=== PATIENT | male | born 1945 | race Caucasian/White ===

== ENCOUNTER 2017-12-17 14:55 | Observation (INO) | payer MEDICARE, OTHER ==
[~2017-12-17 14:55] MED LIST: ALBU8I INH; ASPI81TA82 PO; ATOR40TA PO; CLON1TAB PO; COQ150CA PO; KLOR20TA3 PO; METO25 PO; PROZ20CA11 PO; SAW160TA PO; SLOWTAB PO; TORS20TA PO; TRAZ50TA12 PO; UMEC1AER INH; VITA100017 PO; VITA400C70 PO; Z.0.OXYGENDME TC; [UNRECOGNIZED DRUG - CODE] PO
[2017-12-17] MEDS ORDERED: IOHEXOL 350 MG/ML 10 ML VIAL (for RAD DIAG) IVCONTRAST ONE ×2 (14:56)
[2017-12-17 15:10] VITALS: BP 120/65; PULSE 73; RESP 20; TEMP 98.2; O2SAT 90
--- NOTE | 2017-12-17 16:23 | RADRPT ---
EXAM DATE/TIME: 12/17/2017 15:56 [facility] COMPARISON: CHEST SINGLE AP, November 19, 2014, 15:33. INDICATIONS : Short of breath. MEDICAL HISTORY : None. SURGICAL HISTORY : None. ENCOUNTER: Initial ACUITY: 1 day PAIN SCORE: 0/10 LOCATION: Bilateral chest FINDINGS: Frontal and lateral views of the chest demonstrate a normal-sized cardiac silhouette with calcificati on of the aorta. Left chest wall cardiac pacing device is present with the tips overlying the heart. Some of the wires are fractured, likely representing abandoned wires. This is a stable finding. Lungs are hyperexpanded with mild lucency in the upper lung zones. No pleural effusion, airspace consolida tion, or pneumothorax is identified. The bones and soft tissues demonstrate no acute finding. CONCLUSION: 1. No acute cardiopulmonary abnormality is identified. 2. Background lung changes are suggestive of obstructive airways disease/emphysema. Matthias Peraza MD on December 17, 2017 at 16:19 Board Certified Radiologist. This report was verified electronically.
[2017-12-17 18:06] VITALS: BP 197/91; PULSE 64; RESP 16; O2SAT 99
[2017-12-17 18:06] LABS: AUTOMATED NEUTROPHIL # 6.3 TH/MM3 (1.8-7.7); BASOPHIL # 0.1 TH/MM3 (0-0.2); BASOPHIL % 0.8 % (0.0-2.0); HEMATOCRIT 52.7 % (39.0-51.0); HEMOGLOBIN 16.7 GM/DL (13.0-17.0); LYMPH % 9.8 % (9.0-44.0); LYMPHOCYTE # 0.7 TH/MM3 (1.0-4.8); MEAN CELL VOLUME 93.8 FL (80.0-100.0); MEAN CORPUSCULAR HEMOGLOBIN 29.7 PG (27.0-34.0); MEAN CORPUSCULAR HGB CONC 31.7 % (32.0-36.0); MEAN PLATELET VOLUME 8.5 FL (7.0-11.0); MONO % 4.6 % (0.0-8.0); MONOCYTE # 0.3 TH/MM3 (0-0.9); NEUT % 84.8 % (16.0-70.0); PLATELET COUNT 122 TH/MM3 (150-450); RED BLOOD COUNT 5.61 MIL/MM3 (4.50-5.90); RED CELL DISTRIBUTION WIDTH 13.9 % (11.6-17.2); WHITE BLOOD COUNT 7.4 TH/MM3 (4.0-11.0)
--- NOTE | 2017-12-17 18:09 | PD ---
HPI Chief Complaint: Respiratory Symptoms Time Seen by Provider: 17:59 Travel History International Travel<30 days: No Contact w/Intl Traveler<30days: No History of Present Illness HPI Patient comes in complaining of progressive shortness of breath that has not improved. He normally only uses 2 L of nasal cannula oxygen at nighttime. However over the past week or so it has been worsening. Patient was admitted at [facility] where he was admitted. About 4 days or so placed on breathing treatments and IV steroids which caused his blood sugar to go up and required insulin although he has never had a history of blood sugar problems. The patient was very upset and about the care that he received at [facility] facility. Patient was discharged on oral steroids and oral antibiotics. However the patient is concerned that no x-ray no CAT scan was ever done at the other facility and was concerned that he had other possibilities could be causing his shortness of breath. PCP is CECIL and Dr. Alfaro Pulmonary is Dr. MALIK [employer] Manufacturing Supervisor is Dr. BATSHEVA ROSE Past Medical History Arthritis: Yes Asthma: No Autoimmune Disease: No Blood Disorders: No Depression: Yes Heart Rhythm Problems: Yes Cancer: No Cardiovascular Problems: Yes High Cholesterol: Yes Chemotherapy: No Chest Pain: No Congestive Heart Failure: No COPD: Yes Diabetes: No Diminished Hearing: No Endocrine: No Gastrointestinal Disorders: No Glaucoma: No Genitourinary: No Hepatitis: No Hiatal Hernia: No Hypertension: Yes Immune Disorder: No Musculoskeletal: No Neurologic: No Psychiatric: No Reproductive: No Respiratory: Yes Integumentary: No Myocardial Infarction: No Radiation Therapy: No Sickle Cell Disease: No Sleep Apnea: No Thyroid Disease: No Past Surgical History Abdominal Surgery: No AICD: Yes Appendectomy: Yes Arteriovenous Shunt: No Body Medical Devices: ICD Cardiac Surgery: Yes (PACEMAKER AND INTERNAL DEFIBRILATOR) Ear Surgery: No Endocrine Surgery: No Eye Surgery: No Genitourinary Surgery: No Gynecologic Surgery: No Insulin Pump: No Joint Replacement: No Oral Surgery: No Pacemaker: Yes Thoracic Surgery: Yes Other Surgery: Yes Social History Alcohol Use: No Tobacco Use: No Substance Use: No Allergies-Medications (Allergen,Severity, Reaction): Coded Allergies: No Known Allergies (Verified Allergy, Unknown, 12/17/17) Reported Meds & Prescriptions Reported Meds & Active Scripts Active Reported Vitamin E (Vitamin E Acetate) 400 Unit Capsule 1 Tab PO DAILY Eplerenone 25 Mg Tab 25 Mg PO DAILY Prednisone 10 Mg Tab 10 Mg PO DIRECTED Doxycycline Hyclate 100 Mg Cap 100 Mg PO DAILY Metoprolol Tartrate 25 Mg Tab 25 Mg PO BID Aspirin 81 Mg Chew 81 Mg CHEW DAILY Atorvastatin (Atorvastatin Calcium) 40 Mg Tab 40 Mg PO HS Clonazepam 0.5 Mg Tab 0.5 Mg PO BID Fluoxetine (Fluoxetine HCl) 60 Mg Tab 60 Mg PO DAILY Anoro Ellipta Inh (Umeclidinium/Vilanterol) 62.5-25 Mcg/Act Aero 1 Puff INH DAILY Trazodone (Trazodone HCl) 50 Mg Tab 150 Mg PO HS Physical Exam Narrative GENERAL: SKIN: Warm and dry. HEAD: Atraumatic. Normocephalic. EYES: Pupils equal and round. No scleral icterus. No injection or drainage. ENT: No nasal bleeding or discharge. Mucous membranes pink and moist. NECK: Trachea midline. No JVD. CARDIOVASCULAR: Regular rate and rhythm. RESPIRATORY: No accessory muscle use. Clear to auscultation. Breath sounds equal bilaterally. GASTROINTESTINAL: Abdomen soft, non-tender, nondistended. MUSCULOSKELETAL: Extremities without clubbing, cyanosis, or edema. No obvious deformities. NEUROLOGICAL: Awake and alert. No obvious cranial nerve deficits. Motor grossly within normal limits. Five out of 5 muscle strength in the arms and legs. Normal speech. PSYCHIATRIC: Appropriate mood and affect; insight and judgment normal. Data Data Last Documented VS Vital Signs Date Time Temp Pulse Resp B/P (MAP) Pulse Ox O2 Delivery O2 Flow Rate FiO2 12/17/17 19:22 66 18 169/79 (109) 100 Nasal Cannula 4.00 12/17/17 15:10 98.2 Orders Orders Complete Blood Count With Diff (12/17/17 15:15) Comprehensive Metabolic Panel (12/17/17 15:15) B-Type Natriuretic Peptide (12/17/17 15:15) Act Partial Throm Time (Ptt) (12/17/17 15:15) Prothrombin Time / Inr (Pt) (12/17/17 15:15) Magnesium (Mg) (12/17/17 15:15) Chest, Pa & Lat (12/17/17 15:15) Ckmb (Isoenzyme) Profile (12/17/17 18:00) Troponin I (12/17/17 18:00) Ct Pulmonary Angiogram (12/17/17 18:19) Iohexol 350 Inj (Omnipaque 350 Inj) (12/17/17 14:56) Methylprednisolone So Succ Inj (Solumedr (12/17/17 20:45) Albuterol-Ipratropium Neb (Duoneb Neb) (12/17/17 20:45) Admit Order (Ed Use Only) (12/17/17 20:45) Labs Laboratory Tests Test 12/17/17 16:40 White Blood Count 7.4 TH/MM3 Red Blood Count 5.61 MIL/MM3 Hemoglobin 16.7 GM/DL Hematocrit 52.7 % Mean Corpuscular Volume 93.8 FL Mean Corpuscular Hemoglobin 29.7 PG Mean Corpuscular Hemoglobin Concent 31.7 % Red Cell Distribution Width 13.9 % Platelet Count 122 TH/MM3 Mean Platelet Volume 8.5 FL Neutrophils (%) (Auto) 84.8 % Lymphocytes (%) (Auto) 9.8 % Monocytes (%) (Auto) 4.6 % Eosinophils (%) (Auto) 0.0 % Basophils (%) (Auto) 0.8 % Neutrophils # (Auto) 6.3 TH/MM3 Lymphocytes # (Auto) 0.7 TH/MM3 Monocytes # (Auto) 0.3 TH/MM3 Eosinophils # (Auto) 0.0 TH/MM3 Basophils # (Auto) 0.1 TH/MM3 CBC Comment DIFF FINAL Differential Comment Prothrombin Time 11.2 SEC Prothromb Time International Ratio 1.1 RATIO Activated Partial Thromboplast Time 24.4 SEC Blood Urea Nitrogen 28 MG/DL Creatinine 1.11 MG/DL Random Glucose 174 MG/DL Total Protein 7.0 GM/DL Albumin 3.3 GM/DL Calcium Level 8.3 MG/DL Magnesium Level 2.3 MG/DL Alkaline Phosphatase 64 U/L Aspartate Amino Transf (AST/SGOT) 48 U/L Alanine Aminotransferase (ALT/SGPT) 81 U/L Total Bilirubin 2.1 MG/DL Sodium Level 140 MEQ/L Potassium Level 5.6 MEQ/L Chloride Level 99 MEQ/L Carbon Dioxide Level 37.6 MEQ/L Anion Gap 3 MEQ/L Estimat Glomerular Filtration Rate 65 ML/MIN Total Creatine Kinase 58 U/L Troponin I LESS THAN 0.02 NG/ML B-Type Natriuretic Peptide 94 PG/ML MDM Medical Decision Making Medical Screen Exam Complete: Yes Emergency Medical Condition: Yes Medical Record Reviewed: Yes Differential Diagnosis COPD versus CHF versus pericardial effusion versus pulmonary edema versus pulmonary embolus versus STEMI versus atypical non-STEMI Narrative Course CBC shows no left shift, no leukocytosis, no anemia, slightly low platelet count of 122,000 Coagulation profile is within normal limits Patient has several minor abnormalities including potassium of 5.6, bicarb of 38 no anion gap BUN of 28 creatinine 1.1 with a GFR of 65 random glucose of 174 total bili of 2.1 AST of 48 ALT of 81 beta natruretic peptide of 94 albumin 3.3 Chest x-ray read by radiologist as no acute cardia pulmonary abnormality identified, background lung changes are suggestive of emphysema. Patient is signed out to incoming physician pending a CT chest to rule out pericardial effusion versus pulmonary embolus as cause of dyspnea Diagnosis Primary Impression: Dyspnea Admitting Information Admitting Physician Requests: Observation Akil He MD Dec 17, 2017 18:09
[2017-12-17] MEDS ORDERED: VITA-142 PO (18:16)
[2017-12-17] MEDS ORDERED: METO25TA3 PO (18:16)
[2017-12-17] MEDS ORDERED: EPLE25TA PO (18:16)
[2017-12-17] MEDS ORDERED: PRED10 PO (18:16)
[2017-12-17] MEDS ORDERED: DOXY100C PO (18:16)
[2017-12-17] MEDS ORDERED: ATOR40TA16 PO (18:16)
[2017-12-17] MEDS ORDERED: ASPI-516 CHEW (18:16)
[2017-12-17] MEDS ORDERED: FLUO60TA PO (18:16)
[2017-12-17] MEDS ORDERED: CLON0.5T PO (18:16)
[2017-12-17 18:18] LABS: ALBUMIN 3.3 GM/DL (3.4-5.0); AST (GOT) 48 U/L (15-37); BICARBONATE 37.6 MEQ/L (21.0-32.0); BLOOD UREA NITROGEN 28 MG/DL (7-18); CALCIUM 8.3 MG/DL (8.5-10.1); CHLORIDE 99 MEQ/L (98-107); CREATININE 1.11 MG/DL (0.60-1.30); GLOMERULAR FILTRATION RATE 65 ML/MIN (>89); GLUCOSE,RANDOM 174 MG/DL (74-106); MAGNESIUM 2.3 MG/DL (1.5-2.5); SODIUM (NA) 140 MEQ/L (136-145)
[2017-12-17 18:22] LABS: ALKALINE PHOSPHATASE 64 U/L (45-117); ALT (GPT) 81 U/L (12-78); TOTAL BILIRUBIN ADULT 2.1 MG/DL (0.2-1.0)
[2017-12-17 18:27] LABS: INTERNATIONAL NORMALIZED RATIO 1.1 RATIO; PROTHROMBIN TIME - PATIENT 11.2 SEC (9.8-11.6)
[2017-12-17 18:42] LABS: TROPONIN I LESS THAN 0.02 NG/ML (0.02-0.05)
[2017-12-17 19:22] VITALS: BP_SYST 169; BP_SYST 203; BP_DIAS 79; BP_DIAS 82; PULSE 66; RESP 18; O2SAT 100
--- NOTE | 2017-12-17 19:55 | RADRPT ---
EXAM DATE/TIME: 12/17/2017 19:37 [facility] COMPARISON: CT PULMONARY ANGIOGRAM, November 19, 2014, 18:36. INDICATIONS : Shortness of breath for one month, low oxygen saturation, patient complains of cough and fever. Rimma nt has known emphysema. IV CONTRAST: 60 cc Omnipaque 350 (iohexol) IV RADIATION DOSE: 13.52 CTDIvol (mGy) MEDICAL HISTORY : Cardiovascular disease. Hypertension. Chronic obstructive pulmonary disease. SURGICAL HISTORY : Appendectomy. Defibrillator. ENCOUNTER: Initial ACUITY: 1 month PAIN SCALE: 9/10 LOCATION: chest TECHNIQUE: Volumetric scanning of the chest was performed using a pulmonary embolism protocol MIP images were re constructed. Using automated exposure control and adjustment of the mA and/or kV according to patien t size, radiation dose was kept as low as reasonably achievable to obtain optimal diagnostic quality images. DICOM format image data is available electronically for review and comparison. Follow-up recommendations for detected pulmonary nodules are based at a minimum on nodule size and pa tient risk factors according to Fleischner Society Guidelines. FINDINGS: PULMONARY ARTERIES: No filling defects are seen in the pulmonary arteries through the segmental level. LUNGS: There is no consolidation or pneumothorax . The lungs remain hyperinflated with underlying emphysema . No concerning pulmonary nodule is visualized. PLEURAE: There is no pleural thickening or pleural effusion. MEDIASTINUM: There is good visualization of the great vessels of the middle mediastinum. No evidence of mediastin al or hilar adenopathy/mass. Coronary artery calcifications are present and cardiomegaly. MUSCULOSKELETAL: Within normal limits for patient age. MISCELLANEOUS: The visualized upper abdominal organs demonstrate no acute abnormality. There is a left subclavian tr ansvenous pacer in place. CONCLUSION: 1. No evidence of pulmonary emboli. 2. Underlying emphysema. Johnny Meng MD on December 17, 2017 at 19:50 Board Certified Radiologist. This report was verified electronically.
--- NOTE | 2017-12-17 20:26 | PD ---
Data Data Last Documented VS Vital Signs Date Time Temp Pulse Resp B/P (MAP) Pulse Ox O2 Delivery O2 Flow Rate FiO2 12/17/17 19:22 66 18 169/79 (109) 100 Nasal Cannula 4.00 12/17/17 15:10 98.2 Orders Orders Complete Blood Count With Diff (12/17/17 15:15) Comprehensive Metabolic Panel (12/17/17 15:15) B-Type Natriuretic Peptide (12/17/17 15:15) Act Partial Throm Time (Ptt) (12/17/17 15:15) Prothrombin Time / Inr (Pt) (12/17/17 15:15) Magnesium (Mg) (12/17/17 15:15) Chest, Pa & Lat (12/17/17 15:15) Ckmb (Isoenzyme) Profile (12/17/17 18:00) Troponin I (12/17/17 18:00) Ct Pulmonary Angiogram (12/17/17 18:19) Iohexol 350 Inj (Omnipaque 350 Inj) (12/17/17 14:56) Methylprednisolone So Succ Inj (Solumedr (12/17/17 20:45) Albuterol-Ipratropium Neb (Duoneb Neb) (12/17/17 20:45) Admit Order (Ed Use Only) (12/17/17 20:45) Labs Laboratory Tests Test 12/17/17 16:40 White Blood Count 7.4 TH/MM3 Red Blood Count 5.61 MIL/MM3 Hemoglobin 16.7 GM/DL Hematocrit 52.7 % Mean Corpuscular Volume 93.8 FL Mean Corpuscular Hemoglobin 29.7 PG Mean Corpuscular Hemoglobin Concent 31.7 % Red Cell Distribution Width 13.9 % Platelet Count 122 TH/MM3 Mean Platelet Volume 8.5 FL Neutrophils (%) (Auto) 84.8 % Lymphocytes (%) (Auto) 9.8 % Monocytes (%) (Auto) 4.6 % Eosinophils (%) (Auto) 0.0 % Basophils (%) (Auto) 0.8 % Neutrophils # (Auto) 6.3 TH/MM3 Lymphocytes # (Auto) 0.7 TH/MM3 Monocytes # (Auto) 0.3 TH/MM3 Eosinophils # (Auto) 0.0 TH/MM3 Basophils # (Auto) 0.1 TH/MM3 CBC Comment DIFF FINAL Differential Comment Prothrombin Time 11.2 SEC Prothromb Time International Ratio 1.1 RATIO Activated Partial Thromboplast Time 24.4 SEC Blood Urea Nitrogen 28 MG/DL Creatinine 1.11 MG/DL Random Glucose 174 MG/DL Total Protein 7.0 GM/DL Albumin 3.3 GM/DL Calcium Level 8.3 MG/DL Magnesium Level 2.3 MG/DL Alkaline Phosphatase 64 U/L Aspartate Amino Transf (AST/SGOT) 48 U/L Alanine Aminotransferase (ALT/SGPT) 81 U/L Total Bilirubin 2.1 MG/DL Sodium Level 140 MEQ/L Potassium Level 5.6 MEQ/L Chloride Level 99 MEQ/L Carbon Dioxide Level 37.6 MEQ/L Anion Gap 3 MEQ/L Estimat Glomerular Filtration Rate 65 ML/MIN Total Creatine Kinase 58 U/L Troponin I LESS THAN 0.02 NG/ML B-Type Natriuretic Peptide 94 PG/ML [facility] Medical Record Reviewed: Yes Supervised Visit with ALBERTO: No Interpretation(s) Last Impressions CT Angiography 12/17/17 1819 Signed Impressions: Service Date/Time: Sunday, December 17, 2017 19:37 - CONCLUSION: 1. No evidence of pulmonary emboli. 2. Underlying emphysema. Johnny Meng MD Chest X-Ray 12/17/17 1515 Signed Impressions: Service Date/Time: Sunday, December 17, 2017 15:56 - CONCLUSION: 1. No acute cardiopulmonary abnormality is identified. 2. Background lung changes are suggestive of obstructive airways disease/emphysema. Matthias Peraza MD Narrative Course During the course of the patient's emergency department visit, the patient's history, examination, and differential diagnosis were reviewed with the patient. The patient was placed on a nurse monitoring with oximetry and frequent blood pressure monitoring. The patient had IV access obtained and blood work sent for analysis. The patient's case was checked out to me by Dr. He. Please see his complete history and physical. The patient's case was checked out to me at the conclusion of his shift. The patient was pending CTA of the chest to rule out pulmonary embolism or other underlying cause for the patient' s worsening shortness of breath. The patient's laboratory studies were reviewed and remarkable for a white count of 7.4, hemoglobin 16.7, platelets 122 with 84.6 neutrophils, CMP is remarkable for a potassium of 5.6, CO2 37.6, BUN 28, glucose 174, total bilirubin 2.1, AST 48, ALT 81, BNP 94, cardiac enzymes within normal limits. PT 11.2, PTT 24.4 Radiology studies were reviewed and remarkable for a chest x-ray that shows no acute cardiopulmonary abnormality, background lung changes are suggestive of obstructive airways/emphysema. A CTA to evaluate for possible underlying pulmonary embolism was done. The patient had no evidence of pulmonary embolism. The patient had hyperinflation with underlying emphysematous changes. No nodules were noted. No infiltrates were noted. The patient's results were discussed with the patient, including the plan of care. I explained that further testing and/ or monitoring is indicated based on the patient's history, examination, and/ or laboratory findings. Therefore, I recommended admission for additional evaluation. The patient expressed understanding and was agreeable with this plan. The patient was admitted to the hospital in stable condition and sent to a bed under the care of the [facility] service. Physician Communication Physician Communication The patient's case including history, pertinent physical examination findings, and laboratory studies were discussed with Dr. Malhotra. It was agreed that the patient would be admitted to the [facility] service. Diagnosis Primary Impression: Dyspnea Additional Impression: COPD exacerbation Admitting Information Admitting Physician Requests: Observation Sandie Alas MD Dec 17, 2017 20:26
[2017-12-17] MEDS ORDERED: RESP: ALBUTEROL 2.5 MG/IPRATROPIUM 0.5 MG NEB (SCH) NEB ONE (20:45)
[2017-12-17] MEDS ORDERED: methylPREDNISolone SOD SUCC 125 MG/2 ML VIAL IV PUSH ONE (20:45)
[2017-12-17] MEDS ORDERED: RESP: ALBUTEROL 2.5 MG/3 ML NEB (PRN) INH (21:30)
[2017-12-17] MEDS ORDERED: SODIUM CHLORIDE 0.9% FLUSH 10 ML FLUSH IV FLUSH PRN (21:30)
[2017-12-17 21:40] VITALS: O2SAT 95
[2017-12-17 21:42] VITALS: BP 153/72; PULSE 64; RESP 20; O2SAT 94
[2017-12-17] MEDS: RESP: ALBUTEROL 2.5 MG/IPRATROPIUM 0.5 MG NEB (SCH) INH (21:47)
[2017-12-17] MEDS: HEPARIN SODIUM - SQ 10,000 UNITS/ML VIAL SQ SCH (22:09)
--- NOTE | 2017-12-17 22:39 | HHI.HP ---
[facility] Arnel Alfaro M.D. Admission Diagnosis COPD exacerbation Diagnoses: Travel History International Travel<30 Days: No Contact w/Intl Traveler <30 Da: No History of Present Illness 72-year-old male with a past medical history significant for COPD, hyperlipidemia, pulmonary hypertension, depression, mitral valve prolapse and cardiomyopathy presents to the emergency department for the evaluation of increasing and persistent shortness of breath. The patient reports he recently had a 4-5 day stay at [facility] where he feels he was not appropriately treated and was discharged early to home. The patient reports that he fell yesterday because she was not stable and his oxygen levels were too low. He came to the emergency department for further evaluation of his persistent shortness of breath. The patient reports he is normally on 2 L of home oxygen only at night but has been requiring approximately 4 L around the clock to maintain his oxygen saturations. He was discharged from [facility] with a Medrol Dosepak and doxycycline with which he has been compliant. The patient denies any chest pain. No abdominal pain. No nausea/vomiting/ diarrhea. No lateralizing signs/symptoms. Review of Systems Except as stated in HPI: all other systems reviewed are Neg Past Family Social History Past Medical History (Obtained from medical records) COPD, hyperlipidemia, pulmonary hypertension, depression, mitral valve prolapse and cardiomyopathy Past Surgical History Appendectomy AICD placement Reported Medications Reported Meds & Active Scripts Active Reported Vitamin E (Vitamin E Acetate) 400 Unit Capsule 1 Tab PO DAILY Eplerenone 25 Mg Tab 25 Mg PO DAILY Prednisone 10 Mg Tab 10 Mg PO DIRECTED Doxycycline Hyclate 100 Mg Cap 100 Mg PO DAILY Metoprolol Tartrate 25 Mg Tab 25 Mg PO BID Aspirin 81 Mg Chew 81 Mg CHEW DAILY Atorvastatin (Atorvastatin Calcium) 40 Mg Tab 40 Mg PO HS Clonazepam 0.5 Mg Tab 0.5 Mg PO BID Fluoxetine (Fluoxetine HCl) 60 Mg Tab 60 Mg PO DAILY Anoro Ellipta Inh (Umeclidinium/Vilanterol) 62.5-25 Mcg/Act Aero 1 Puff INH DAILY Trazodone (Trazodone HCl) 50 Mg Tab 150 Mg PO HS Allergies: Coded Allergies: No Known Allergies (Verified Allergy, Unknown, 12/17/17) Family History Negative for CAD/DM Social History Negative for alcohol, tobacco and illicit drugs. Physical Exam Vital Signs Vital Signs Date Time Temp Pulse Resp B/P (MAP) Pulse Ox O2 Delivery O2 Flow Rate FiO2 12/17/17 21:42 64 20 153/72 (99) 94 2.00 12/17/17 21:40 95 Nasal Cannula 2.00 12/17/17 19:22 66 18 169/79 (109) 100 Nasal Cannula 4.00 12/17/17 18:06 64 16 197/91 (126) 99 Nasal Cannula 4.00 12/17/17 18:03 99 Nasal Cannula 4.00 12/17/17 15:10 98.2 73 20 120/65 (83) 90 Physical Exam GENERAL: male sitting up in bed SKIN: No rashes, ecchymoses or lesions. Cool and dry. HEAD: Atraumatic. Normocephalic. No temporal or scalp tenderness. EYES: Pupils equal round and reactive. Extraocular motions intact. No scleral icterus. No injection or drainage. ENT: Nose without bleeding, purulent drainage or septal hematoma. Throat without erythema, tonsillar hypertrophy or exudate. Uvula midline. Airway patent. NECK: Trachea midline. No JVD or lymphadenopathy. Supple, nontender, no meningeal signs. CARDIOVASCULAR: Regular rate and rhythm without murmurs, gallops, or rubs. RESPIRATORY: Clear to auscultation. Breath sounds equal bilaterally. No wheezes , rales, or rhonchi. GASTROINTESTINAL: Abdomen soft, non-tender, nondistended. No hepato-splenomegaly , or palpable masses. No guarding. MUSCULOSKELETAL: Extremities without clubbing, cyanosis, or edema. No joint tenderness, effusion, or edema noted. No calf tenderness. NEUROLOGICAL: Awake and alert. Cranial nerves II through XII intact. Motor and sensory grossly within normal limits. Normal speech. Laboratory Laboratory Tests Test 12/17/17 16:40 White Blood Count 7.4 Red Blood Count 5.61 Hemoglobin 16.7 Hematocrit 52.7 Mean Corpuscular Volume 93.8 Mean Corpuscular Hemoglobin 29.7 Mean Corpuscular Hemoglobin Concent 31.7 Red Cell Distribution Width 13.9 Platelet Count 122 Mean Platelet Volume 8.5 Neutrophils (%) (Auto) 84.8 Lymphocytes (%) (Auto) 9.8 Monocytes (%) (Auto) 4.6 Eosinophils (%) (Auto) 0.0 Basophils (%) (Auto) 0.8 Neutrophils # (Auto) 6.3 Lymphocytes # (Auto) 0.7 Monocytes # (Auto) 0.3 Eosinophils # (Auto) 0.0 Basophils # (Auto) 0.1 CBC Comment DIFF FINAL Differential Comment Prothrombin Time 11.2 Prothromb Time International Ratio 1.1 Activated Partial Thromboplast Time 24.4 Blood Urea Nitrogen 28 Creatinine 1.11 Random Glucose 174 Total Protein 7.0 Albumin 3.3 Calcium Level 8.3 Magnesium Level 2.3 Alkaline Phosphatase 64 Aspartate Amino Transf (AST/SGOT) 48 Alanine Aminotransferase (ALT/SGPT) 81 Total Bilirubin 2.1 Sodium Level 140 Potassium Level 5.6 Chloride Level 99 Carbon Dioxide Level 37.6 Anion Gap 3 Estimat Glomerular Filtration Rate 65 Total Creatine Kinase 58 Troponin I LESS THAN 0.02 B-Type Natriuretic Peptide 94 Result Diagram: 12/17/17 1640 12/17/17 1640 Caprini VTE Risk Assessment Caprini VTE Risk Assessment: Mod/High Risk (score >= 2) Caprini Risk Assessment Model Point Value = 1 Point Value = 2 Point Value = 3 Point Value = 5 Age 41-60 Minor surgery BMI > 25 kg/m2 Swollen legs Varicose veins or History of unexplained or recurrent spontaneous Oral contraceptives or hormone replacement Sepsis (< 1 month) Serious lung disease, including pneumonia (< 1 month) Abnormal pulmonary function Acute myocardial infarction Congestive heart failure (< 1 month) History of inflammatory bowel disease Medical patient at bed rest Age 61-74 Arthroscopic surgery Major open surgery (> 45 min) Laparoscopic surgery (> 45 min) Malignancy Confined to bed (> 72 hours) Immobilizing plaster cast Central venous access Age >= 75 History of VTE Family history of VTE Factor V Leiden Prothrombin [id number] Lupus anticoagulant Anticardiolipin antibodies Elevated serum homocysteine Heparin-induced thrombocytopenia Other congenital or acquired thrombophilia Stroke (< 1 month) Elective arthroplasty Hip, pelvis, or leg fracture Acute spinal cord injury (< 1 month) Prophylaxis Regimen Total Risk Factor Score Risk Level Prophylaxis Regimen 0-1 Low Early ambulation 2 Moderate Order ONE of the following: *Sequential Compression Device (SCD) *Heparin 5000 units SQ BID 3-4 Higher Order ONE of the following medications: *Heparin 5000 units SQ TID *Enoxaparin/Lovenox 40 mg SQ daily (WT < 150 kg, CrCl > 30 mL/min) *Enoxaparin/Lovenox 30 mg SQ daily (WT < 150 kg, CrCl > 10-29 mL/min) *Enoxaparin/Lovenox 30 mg SQ BID (WT < 150 kg, CrCl > 30 mL/min) AND/OR *Sequential Compression Device (SCD) 5 or more Highest Order ONE of the following medications: *Heparin 5000 units SQ TID (Preferred with Epidurals) *Enoxaparin/Lovenox 40 mg SQ daily (WT < 150 kg, CrCl > 30 mL/min) *Enoxaparin/Lovenox 30 mg SQ daily (WT < 150 kg, CrCl > 10-29 mL/min) *Enoxaparin/Lovenox 30 mg SQ BID (WT < 150 kg, CrCl > 30 mL/min) AND *Sequential Compression Device (SCD) Assessment and Plan Assessment and Plan Assessment/plan: 1. COPD exacerbation Patient continues to complain of shortness of breath despite oral antibiotics and steroids Continue outpatient doxycycline Solu-Medrol Duo nebs Supplemental oxygen as needed Patient's bottom filler, Dr. Galarza consulted, appreciate recommendations Walk test pending as patient may require continuous home oxygen 2. Hypertension/hyperlipidemia/cardiomyopathy/depression Continue home medications 3. Hyperkalemia Potassium mildly elevated at 5.6 Monitor [facility] Heart healthy diet Electrolytes: As above Heparin Tavia aMlhotra MD Dec 17, 2017 22:39
[2017-12-17 23:03] VITALS: BP 174/87; PULSE 61; RESP 16; TEMP 98.2; O2SAT 96
[2017-12-18] VITALS (8 sets, daily range): BP systolic 96–147; BP diastolic 46–80; PULSE 60–89; RESP 16–18; TEMP 97.6–98.5; O2SAT 92–97
[2017-12-18] MEDS: methylPREDNISolone SOD SUCC 125 MG/2 ML VIAL IV PUSH SCH ×4 (03:01→20:45)
[2017-12-18] MEDS: RESP: ALBUTEROL 2.5 MG/IPRATROPIUM 0.5 MG NEB (SCH) INH ×4 (03:31→19:57)
[2017-12-18] MEDS: HEPARIN SODIUM - SQ 10,000 UNITS/ML VIAL SQ SCH ×3 (06:24→21:30)
[2017-12-18] MEDS: FLUoxetine HCL 20 MG CAP PO SCH (09:00)
[2017-12-18] MEDS: clonazePAM 0.5 MG TAB PO SCH ×2 (09:00→21:30)
[2017-12-18] MEDS: ASPIRIN 81 MG CHEW TAB CHEW SCH (10:31)
[2017-12-18] MEDS: EPLERENONE 25 MG TAB PO SCH (10:31)
[2017-12-18] MEDS: SODIUM CHLORIDE 0.9% FLUSH 10 ML FLUSH IV FLUSH SCH ×2 (10:31→20:45)
[2017-12-18] MEDS: METOPROLOL TARTRATE 25 MG TAB PO SCH ×2 (10:31→21:30)
[2017-12-18] MEDS: DOXYCYCLINE HYCLATE 100 MG CAP PO SCH (10:32)
[2017-12-18 18:49] LABS: BICARBONATE 37.1 MEQ/L (21.0-32.0); CREATININE 1.02 MG/DL (0.60-1.30)
[2017-12-18 18:56] LABS: AUTOMATED NEUTROPHIL # 7.9 TH/MM3 (1.8-7.7); BASOPHIL % 0.3 % (0.0-2.0); HEMATOCRIT 54.6 % (39.0-51.0); LYMPH % 7.1 % (9.0-44.0); LYMPHOCYTE # 0.6 TH/MM3 (1.0-4.8); MEAN CELL VOLUME 92.9 FL (80.0-100.0); MEAN CORPUSCULAR HEMOGLOBIN 30.6 PG (27.0-34.0); MEAN PLATELET VOLUME 8.9 FL (7.0-11.0); MONO % 4.5 % (0.0-8.0); MONOCYTE # 0.4 TH/MM3 (0-0.9); NEUT % 88.1 % (16.0-70.0); PLATELET COUNT 137 TH/MM3 (150-450); RED BLOOD COUNT 5.87 MIL/MM3 (4.50-5.90); RED CELL DISTRIBUTION WIDTH 13.4 % (11.6-17.2)
--- NOTE | 2017-12-18 18:57 | HHI.PR ---
Subjective Remarks sob better afebrile denies cp Objective Vitals Vital Signs Date Time Temp Pulse Resp B/P (MAP) Pulse Ox O2 Delivery O2 Flow Rate FiO2 12/18/17 15:50 98.5 72 18 147/74 (98) 93 12/18/17 11:35 98.1 77 18 137/69 (91) 92 12/18/17 07:30 95 Nasal Cannula 2.00 12/18/17 07:21 98.0 61 18 135/68 (90) 96 12/18/17 04:37 98.2 60 16 96/46 (63) 97 12/17/17 23:03 98.2 61 16 174/87 (116) 96 12/17/17 22:34 12/17/17 21:42 64 20 153/72 (99) 94 2.00 12/17/17 21:40 95 Nasal Cannula 2.00 12/17/17 19:22 66 18 169/79 (109) 100 Nasal Cannula 4.00 Result Diagram: 12/18/17 1742 12/18/17 1742 Imaging Last [address] Angiography 12/17/17 1819 Signed Impressions: Service Date/Time: Sunday, December 17, 2017 19:37 - CONCLUSION: 1. No evidence of pulmonary emboli. 2. Underlying emphysema. Johnny Meng MD Chest X-Ray 12/17/17 1515 Signed Impressions: Service Date/Time: Sunday, December 17, 2017 15:56 - CONCLUSION: 1. No acute cardiopulmonary abnormality is identified. 2. Background lung changes are suggestive of obstructive airways disease/emphysema. Matthias Peraza MD Objective Remarks AAOx3 nad Lungs with decreased BS BL S1s2 systolic murmur no edema in lower extremities no JVD Medications and IVs Current Medications Medications (Trade) Dose Ordered Sig/Angel Route Start Time Stop Time Status Last Admin (NS Flush) 2 ml BID IV FLUSH 12/18/17 09:00 12/18/17 10:31 (NS Flush) 2 ml UNSCH PRN IV FLUSH 12/17/17 21:30 (Duoneb Neb) 1 ampule Q6HR NEB INH 12/17/17 22:00 12/18/17 15:27 (Albuterol Neb) 2.5 mg Q2HR NEB PRN INH 12/17/17 21:30 (SoluMEDROL INJ) 60 mg Q6H IV PUSH 12/18/17 02:00 12/18/17 14:24 (Heparin Inj) 5,000 units Q8H SQ 12/17/17 21:30 12/18/17 14:24 (Aspirin Chew) 81 mg DAILY CHEW 12/18/17 09:00 12/18/17 10:31 (Lipitor) 40 mg HS PO 12/18/17 21:00 (KlonoPIN) 0.5 mg BID PO 12/18/17 09:00 (Inspra) 25 mg DAILY PO 12/18/17 09:00 12/18/17 10:31 (PROzac) 60 mg DAILY PO 12/18/17 09:00 (Lopressor) 25 mg BID PO 12/18/17 09:00 12/18/17 10:31 (Desyrel) 150 mg HS PO 12/18/17 21:00 (Vibramycin) 100 mg DAILY PO 12/18/17 09:00 12/18/17 10:32 A/P Problem List: (1) Acute on chronic respiratory failure with hypoxemia ICD Code: J96.21 - Acute on chronic respiratory failure with hypoxemia Status: Acute (2) COPD exacerbation ICD Code: J44.1 - COPD exacerbation Status: Acute Assessment and Plan 1. COPD exacerbation Patient does not seem to have a respiratory infection. Patient continued to complain of shortness of breath despite oral antibiotics and steroids Continue outpatient doxycycline, IV Solu-Medrol at same dose, diomedes peraza Pulmonology consulted, recommendations pending 2. Hypertension/hyperlipidemia/cardiomyopathy/depression Continue home medications 3. Hyperkalemia Potassium mildly elevated at 5.6 Monitor 12/18 hyperkalemia resolved. Monitor BMP FEN Heart healthy diet Electrolytes: As above Heparin Discharge Planning Possible DC in a.m. Ace Crowe MD Dec 18, 2017 18:57
[2017-12-18] MEDS: traZODone HCL 50 MG TAB PO SCH (20:45)
[2017-12-18] MEDS: ATORVASTATIN 40 MG TAB PO SCH (21:30)
[2017-12-19] MEDS: RESP: ALBUTEROL 2.5 MG/IPRATROPIUM 0.5 MG NEB (SCH) INH ×4 (04:17→20:49)
[2017-12-19] MEDS: methylPREDNISolone SOD SUCC 125 MG/2 ML VIAL IV PUSH SCH ×3 (04:30→14:15)
[2017-12-19] MEDS: HEPARIN SODIUM - SQ 10,000 UNITS/ML VIAL SQ SCH ×3 (04:32→21:54)
[2017-12-19 04:54] VITALS: BP 130/70; PULSE 61; RESP 18; TEMP 98; O2SAT 95
[2017-12-19 07:49] LABS: AUTOMATED NEUTROPHIL # 9.2 TH/MM3 (1.8-7.7); BASOPHIL % 0.4 % (0.0-2.0); HEMATOCRIT 48.7 % (39.0-51.0); LYMPH % 8.1 % (9.0-44.0); LYMPHOCYTE # 0.9 TH/MM3 (1.0-4.8); MEAN CELL VOLUME 93.5 FL (80.0-100.0); MEAN CORPUSCULAR HEMOGLOBIN 30.6 PG (27.0-34.0); MEAN CORPUSCULAR HGB CONC 32.8 % (32.0-36.0); MEAN PLATELET VOLUME 8.5 FL (7.0-11.0); MONO % 4.5 % (0.0-8.0); MONOCYTE # 0.5 TH/MM3 (0-0.9); PLATELET COUNT 124 TH/MM3 (150-450); RED BLOOD COUNT 5.21 MIL/MM3 (4.50-5.90); RED CELL DISTRIBUTION WIDTH 13.5 % (11.6-17.2); WHITE BLOOD COUNT 10.6 TH/MM3 (4.0-11.0)
[2017-12-19 08:00] VITALS: BP 139/73; PULSE 59; RESP 17; TEMP 97.5; O2SAT 94
[2017-12-19 08:11] LABS: AST (GOT) 24 U/L (15-37); BICARBONATE 32.8 MEQ/L (21.0-32.0); BLOOD UREA NITROGEN 23 MG/DL (7-18); CALCIUM 8.7 MG/DL (8.5-10.1); CHLORIDE 102 MEQ/L (98-107); CREATININE 0.96 MG/DL (0.60-1.30); GLOMERULAR FILTRATION RATE 77 ML/MIN (>89); GLUCOSE,RANDOM 141 MG/DL (74-106); MAGNESIUM 2.2 MG/DL (1.5-2.5); SODIUM (NA) 140 MEQ/L (136-145)
[2017-12-19 08:13] LABS: ALT (GPT) 49 U/L (12-78); PHOSPHORUS 3.6 MG/DL (2.5-4.9)
[2017-12-19 08:14] LABS: ALKALINE PHOSPHATASE 57 U/L (45-117); TOTAL BILIRUBIN ADULT 1.8 MG/DL (0.2-1.0); TOTAL PROTEIN 6.4 GM/DL (6.4-8.2)
[2017-12-19] MEDS: clonazePAM 0.5 MG TAB PO SCH ×2 (09:00→21:53)
[2017-12-19] MEDS: FLUoxetine HCL 20 MG CAP PO SCH (09:00)
--- NOTE | 2017-12-19 09:35 | MB ---
cc: Terry Galarza MD DATE: 12/18/2017 REQUESTING PHYSICIAN: Dr. Durant. REASON FOR CONSULTATION: COPD exacerbation. HISTORY OF PRESENT ILLNESS: Mr. Claire is a 72-year-old male with a history of severe COPD, is oxygen dependent, cardiomyopathy, pulmonary hypertension, mitral valve prolapse. He was recently admitted at [facility]. He stayed there for 4 days and was not happy with the care over there. He said he was discharged home, but with not proper medication. He did okay for 1-2 days, but was not feeling well. On the day of this admission, he felt so weak and he just slumped on the floor and fell down, did not pass any consciousness, did not have any chest pain. No nausea or vomiting. With this he was taken to this hospital. He had a CTA of the chest done. It does not show any pulmonary embolism, has underlying emphysema. His CBC showed WBC count 9000, hemoglobin is 18, hematocrit 54.5, MCV 92, platelet count 137. Sodium 140, potassium 4.5, chloride 100, CO2 35, BUN 24, creatinine 1.0. PAST MEDICAL HISTORY: Significant for history of severe COPD, oxygen dependent, pulmonary hypertension, cardiomyopathy, mitral valve prolapse, appendectomy, AICD placement. MEDICATIONS: He is currently takin. Lipitor 40 mg a day. 2. Trazodone 150 mg at nighttime. 3. Aspirin 81 daily. 4. Klonopin 0.5 mg twice a day. 5. Inspra 25 mg a day. 6. Prozac 60 mg a day. 7. Metoprolol 25 mg twice a day. 8. Doxycycline 100 mg twice a day. 9. Solu-Medrol 60 mg q. 6 hours. 10. Nebulizer treatment with albuterol and Atrovent. 11. Heparin 5000 q. 8 hours. ALLERGIES: NO KNOWN DRUG ALLERGIES. SOCIAL HISTORY: He has a long history of smoking, which he quit. No alcohol use. FAMILY HISTORY: He is , lives alone. REVIEW OF SYSTEMS: Normally, he is up and active, uses oxygen. No headache or dizziness. Weight is stable. No DVT or pulmonary embolism. PHYSICAL EXAMINATION: GENERAL: Elderly male, mild short of breath, not in acute distress. VITAL SIGNS: Blood pressure 144/80, heart rate is 89, respirations 18, temperature 98. HEENT: Pupils are equal and reactive to light. Oral mucosa and nasal mucosa normal. NECK: Supple. JVP not raised. CHEST: Equal air entry bilaterally, has faint rhonchi. CARDIOVASCULAR: S1, S2 normal. ABDOMEN: Soft, nondistended. Bowel sounds are present. EXTREMITIES: No edema. IMPRESSION: 1. Chronic obstructive pulmonary disease with exacerbation. 2. Recent fall. 3. Hypertension. 4. Cardiomyopathy. 5. Status post automated implantable cardioverter defibrillator placement. PLAN: Will continue IV Solu-Medrol, aerosol treatment with albuterol and Atrovent, subcu heparin, supplement his oxygen. I will check his blood gas and 02 walk test. Further treatment will depend on the course in the hospital. Thank you Dr. Durant for this consult. Terry Galarza MD ADA/rt , 09:08 PM , 09:34 PM NENITA
[2017-12-19] MEDS: SODIUM CHLORIDE 0.9% FLUSH 10 ML FLUSH IV FLUSH SCH ×2 (09:49→21:54)
[2017-12-19] MEDS: EPLERENONE 25 MG TAB PO SCH (09:49)
[2017-12-19] MEDS: DOXYCYCLINE HYCLATE 100 MG CAP PO SCH (09:49)
[2017-12-19] MEDS: ASPIRIN 81 MG CHEW TAB CHEW SCH (09:50)
[2017-12-19] MEDS: METOPROLOL TARTRATE 25 MG TAB PO SCH ×2 (09:50→21:53)
[2017-12-19 12:00] VITALS: BP 142/73; PULSE 60; RESP 18; TEMP 97.6; O2SAT 94
[2017-12-19] MEDS ORDERED: OXYGENDME NAS.CANULA ×2 (12:32→16:32)
[2017-12-19] MEDS: ACETAMINOPHEN 325 MG TAB PO PRN ×2 (14:08→21:56)
[2017-12-19 16:00] VITALS: BP 151/72; PULSE 64; RESP 19; TEMP 98.4; O2SAT 92
--- NOTE | 2017-12-19 17:04 | HHI.PR ---
Subjective Remarks breathing is improving Patient denies cp/sob afebrile Objective Vitals Vital Signs Date Time Temp Pulse Resp B/P (MAP) Pulse Ox O2 Delivery O2 Flow Rate FiO2 12/19/17 16:00 98.4 64 19 151/72 (98) 92 12/19/17 12:00 97.6 60 18 142/73 (96) 94 12/19/17 08:46 Nasal Cannula 2.50 12/19/17 08:00 97.5 59 17 139/73 (95) 94 12/19/17 04:54 98.0 61 18 130/70 (90) 95 12/18/17 23:53 97.6 62 17 141/77 (98) 96 12/18/17 20:39 98.2 89 18 144/80 (101) 93 12/18/17 19:57 92 Nasal Cannula 3.00 I/O 12/18/17 12/18/17 12/18/17 12/19/17 12/19/17 12/19/17 07:00 15:00 23:00 07:00 15:00 23:00 Output Total 600 ml Balance -600 ml Output Urine Total 600 ml Result Diagram: 12/19/17 0610 12/19/17 [address] Angiography 12/17/17 1819 Signed Impressions: Service Date/Time: Sunday, December 17, 2017 19:37 - CONCLUSION: 1. No evidence of pulmonary emboli. 2. Underlying emphysema. Johnny Meng MD Chest X-Ray 12/17/17 1515 Signed Impressions: Service Date/Time: Sunday, December 17, 2017 15:56 - CONCLUSION: 1. No acute cardiopulmonary abnormality is identified. 2. Background lung changes are suggestive of obstructive airways disease/emphysema. Matthias Peraza MD Objective Remarks AAOx3 nad Lungs with decreased BS BL S1s2 systolic murmur no edema in lower extremities no JVD Medications and IVs Current Medications Medications (Trade) Dose Ordered Sig/Angel Route Start Time Stop Time Status Last Admin (NS Flush) 2 ml BID IV FLUSH 12/18/17 09:00 12/19/17 09:49 (NS Flush) 2 ml UNSCH PRN IV FLUSH 12/17/17 21:30 (Duoneb Neb) 1 ampule Q6HR NEB INH 12/17/17 22:00 12/19/17 15:08 (Albuterol Neb) 2.5 mg Q2HR NEB PRN INH 12/17/17 21:30 (SoluMEDROL INJ) 60 mg Q6H IV PUSH 12/18/17 02:00 12/19/17 14:15 (Heparin Inj) 5,000 units Q8H SQ 12/17/17 21:30 12/19/17 14:08 (Aspirin Chew) 81 mg DAILY CHEW 12/18/17 09:00 12/19/17 09:50 (Lipitor) 40 mg HS PO 12/18/17 21:00 12/18/17 21:30 (KlonoPIN) 0.5 mg BID PO 12/18/17 09:00 12/18/17 21:30 (Inspra) 25 mg DAILY PO 12/18/17 09:00 12/19/17 09:49 (PROzac) 60 mg DAILY PO 12/18/17 09:00 (Lopressor) 25 mg BID PO 12/18/17 09:00 12/19/17 09:50 (Desyrel) 150 mg HS PO 12/18/17 21:00 12/18/17 20:45 (Vibramycin) 100 mg DAILY PO 12/18/17 09:00 12/19/17 09:49 (Tylenol) 650 mg Q4H PRN PO 12/19/17 13:30 12/19/17 14:08 A/P Problem List: (1) Acute on chronic respiratory failure with hypoxemia ICD Code: J96.21 - Acute on chronic respiratory failure with hypoxemia Status: Acute (2) COPD exacerbation ICD Code: J44.1 - COPD exacerbation Status: Acute Assessment and Plan 1. COPD exacerbation Patient does not seem to have a respiratory infection. Patient continued to complain of shortness of breath despite oral antibiotics and steroids Continue outpatient doxycycline, IV Solu-Medrol at same dose, diomedes peraza Pulmonology consulted, recommendations pending 12/19 Taper Iv Solumedrol dose to 40 mg IV Q 12 hrs. 2. Hypertension/hyperlipidemia/cardiomyopathy/depression Continue home medications 3. Hyperkalemia Potassium mildly elevated at 5.6 Monitor 12/18 hyperkalemia resolved. Monitor BMP FEN Heart healthy diet Electrolytes: As above Heparin Discharge Planning Poss Dc in am - patient still on Iv steroids Ace Crowe MD Dec 19, 2017 17:04
[2017-12-19] MEDS ORDERED: GLUCAGON 1 MG/ML VIAL OTHER PRN (17:30)
[2017-12-19] MEDS ORDERED: DEXTROSE 50% IN WATER 50 ML VIAL(D50) IV PUSH PRN (17:30)
[2017-12-19 19:56] VITALS: BP 156/86; PULSE 99; RESP 18; TEMP 98.6; O2SAT 91
--- NOTE | 2017-12-19 19:59 | HHI.PR ---
Subjective Remarks 72 YOWM with Severe COPD,CMP,anxiety breathing better ABG Compensated resp acidosis and hypoxia Gets sob with any activity Objective Vital Signs Vital Signs Date Time Temp Pulse Resp B/P (MAP) Pulse Ox O2 Delivery O2 Flow Rate FiO2 12/19/17 16:00 98.4 64 19 151/72 (98) 92 12/19/17 12:00 97.6 60 18 142/73 (96) 94 12/19/17 08:46 Nasal Cannula 2.50 12/19/17 08:00 97.5 59 17 139/73 (95) 94 12/19/17 04:54 98.0 61 18 130/70 (90) 95 12/18/17 23:53 97.6 62 17 141/77 (98) 96 12/18/17 20:39 98.2 89 18 144/80 (101) 93 12/18/17 19:57 92 Nasal Cannula 3.00 I/O 12/18/17 12/18/17 12/18/17 12/19/17 12/19/17 12/19/17 07:00 15:00 23:00 07:00 15:00 23:00 Intake Total 960 ml Output Total 600 ml 800 ml Balance -600 ml 160 ml Intake Oral 960 ml Output Urine Total 600 ml 800 ml # Voids 2 Result Diagram: 12/19/17 0610 12/19/17 0610 Objective Remarks GENERAL: Elderly Wm, NAD SKIN: Warm and dry. HEAD: Normocephalic. EYES: No scleral icterus. No injection or drainage. NECK: Supple, trachea midline. No JVD or lymphadenopathy. CARDIOVASCULAR: Regular rate and rhythm without murmurs, gallops, or rubs. RESPIRATORY: Breath sounds equal bilaterally. No accessory muscle use. Decreased chest excursion GASTROINTESTINAL: Abdomen soft, non-tender, nondistended. MUSCULOSKELETAL: No cyanosis, or edema. BACK: Nontender without obvious deformity. No CVA tenderness. A/P Assessment and Plan IMPRESSION: 1. Chronic obstructive pulmonary disease with exacerbation. 2. Recent fall. 3. Hypertension. 4. Cardiomyopathy. 5. Status post automated implantable cardioverter defibrillator placement. PLAN: Aerosol nebs DC Solumedrol Pred 10 mg tid Supplement 02 02 walk test DC plans for home Terry Galarza MD Dec 19, 2017 19:59
[2017-12-19 20:50] VITALS: O2SAT 92
[2017-12-19] MEDS: ATORVASTATIN 40 MG TAB PO SCH (21:53)
[2017-12-19] MEDS: traZODone HCL 50 MG TAB PO SCH (21:53)
[2017-12-19] MEDS: INSULIN ASPART SUPPLEMENTAL SCALE SQ SCH (22:05)
[2017-12-20 00:47] VITALS: BP 135/61; PULSE 61; RESP 18; TEMP 97.5; O2SAT 97
[2017-12-20] MEDS ORDERED: methylPREDNISolone SOD SUCC 40 MG/1 ML VIAL IV PUSH SCH (02:00)
[2017-12-20] MEDS: RESP: ALBUTEROL 2.5 MG/IPRATROPIUM 0.5 MG NEB (SCH) INH ×2 (03:17→07:50)
[2017-12-20 05:15] VITALS: BP 135/90; PULSE 61; RESP 18; TEMP 98.3; O2SAT 95
[2017-12-20] MEDS: HEPARIN SODIUM - SQ 10,000 UNITS/ML VIAL SQ SCH ×2 (05:30→13:30)
[2017-12-20 07:19] VITALS: BP 158/80; PULSE 61; RESP 18; TEMP 97.9; O2SAT 97
[2017-12-20 07:51] VITALS: O2SAT 97
[2017-12-20] MEDS: INSULIN ASPART SUPPLEMENTAL SCALE SQ SCH ×2 (08:00→12:00)
[2017-12-20] MEDS: FLUoxetine HCL 20 MG CAP PO SCH (09:00)
[2017-12-20] MEDS: clonazePAM 0.5 MG TAB PO SCH (09:30)
[2017-12-20] MEDS: ASPIRIN 81 MG CHEW TAB CHEW SCH (09:30)
[2017-12-20] MEDS: METOPROLOL TARTRATE 25 MG TAB PO SCH (09:30)
[2017-12-20] MEDS: SODIUM CHLORIDE 0.9% FLUSH 10 ML FLUSH IV FLUSH SCH (09:30)
[2017-12-20] MEDS: predniSONE 10 MG TAB PO SCH ×2 (09:30→14:05)
[2017-12-20] MEDS: DOXYCYCLINE HYCLATE 100 MG CAP PO SCH (09:30)
[2017-12-20] MEDS: EPLERENONE 25 MG TAB PO SCH (09:30)
[2017-12-20 11:31] VITALS: BP 164/79; PULSE 63; RESP 18; TEMP 98.3; O2SAT 97
--- NOTE | 2017-12-20 11:38 | HHI.PR ---
Subjective Remarks 72 YOWM with Severe COPD,CMP,anxiety breathing better ABG Compensated resp acidosis and hypoxia Gets sob with any activity Slept better Objective Vital Signs Vital Signs Date Time Temp Pulse Resp B/P (MAP) Pulse Ox O2 Delivery O2 Flow Rate FiO2 12/20/17 11:31 98.3 63 18 164/79 (107) 97 12/20/17 07:51 97 Nasal Cannula 3.00 12/20/17 07:19 97.9 61 18 158/80 (106) 97 12/20/17 05:15 98.3 61 18 135/90 (105) 95 12/20/17 00:47 97.5 61 18 135/61 (85) 97 12/19/17 22:56 15 12/19/17 20:50 92 Nasal Cannula 3.00 12/19/17 19:56 98.6 99 18 156/86 (109) 91 12/19/17 16:00 98.4 64 19 151/72 (98) 92 12/19/17 12:00 97.6 60 18 142/73 (96) 94 I/O 12/19/17 12/19/17 12/19/17 12/20/17 12/20/17 12/20/17 07:00 15:00 23:00 07:00 15:00 23:00 Intake Total 960 ml 200 ml Output Total 600 ml 800 ml Balance -600 ml 160 ml 200 ml Intake Oral 960 ml 200 ml Output Urine Total 600 ml 800 ml # Voids 2 Result Diagram: 12/19/17 0610 12/19/17 0610 Objective Remarks GENERAL: Elderly Wm, NAD SKIN: Warm and dry. HEAD: Normocephalic. EYES: No scleral icterus. No injection or drainage. NECK: Supple, trachea midline. No JVD or lymphadenopathy. CARDIOVASCULAR: Regular rate and rhythm without murmurs, gallops, or rubs. RESPIRATORY: Breath sounds equal bilaterally. No accessory muscle use. Decreased chest excursion GASTROINTESTINAL: Abdomen soft, non-tender, nondistended. MUSCULOSKELETAL: No cyanosis, or edema. BACK: Nontender without obvious deformity. No CVA tenderness. A/P Assessment and Plan IMPRESSION: 1. Chronic obstructive pulmonary disease with exacerbation. 2. Recent fall. 3. Hypertension. 4. Cardiomyopathy. 5. Status post automated implantable cardioverter defibrillator placement. PLAN: Aerosol nebs Pred 10 mg tid Supplement 10 11 walk test DC plans for home Will FU in office 1 week Terry Galarza MD Dec 20, 2017 11:38
--- NOTE | 2017-12-20 13:55 | HHI.DCPOC ---
Discharge Care Plan Diagnosis: (1) Acute on chronic respiratory failure with hypoxemia (2) COPD exacerbation (3) Pulmonary hypertension (4) Hyperlipidemia Goals to Promote Your Health * To prevent worsening of your condition and complications * To maintain your health at the optimal level Directions to Meet Your Goals Take your medications as prescribed Follow your dietary instruction Follow activity as directed Keep your appointments as scheduled Take your immunizations and boosters as scheduled If your symptoms worsen call your PCP, if no PCP go to Urgent Care Center or Emergency Room Smoking is Dangerous to Your Health. Avoid second hand smoke Call the 24-hour hour crisis hotline for domestic abuse at Ace Crowe MD Dec 20, 2017 13:55
[2017-12-20] MEDS ORDERED: PRED10PA2 PO (13:58)
--- NOTE | 2017-12-20 14:06 | HHI.DS ---
Discharge Summary Admission Date Dec 17, 2017 at 20:47 Discharge Date: Dec 20, 2017 Admitting Diagnosis COPD exacerbation (1) Acute on chronic respiratory failure with hypoxemia ICD Code: J96.21 - Acute on chronic respiratory failure with hypoxemia Diagnosis: Principal Status: Acute (2) COPD exacerbation ICD Code: J44.1 - COPD exacerbation Diagnosis: Principal Status: Acute Procedures none Brief History - From Admission 72-year-old male with a past medical history significant for COPD, hyperlipidemia, pulmonary hypertension, depression, mitral valve prolapse and cardiomyopathy presents to the emergency department for the evaluation of increasing and persistent shortness of breath. The patient reports he recently had a 4-5 day stay at [facility] where he feels he was not appropriately treated and was discharged early to home. The patient reports that he fell yesterday because she was not stable and his oxygen levels were too low. He came to the emergency department for further evaluation of his persistent shortness of breath. The patient reports he is normally on 2 L of home oxygen only at night but has been requiring approximately 4 L around the clock to maintain his oxygen saturations. He was discharged from [facility] with a Medrol Dosepak and doxycycline with which he has been compliant. The patient denies any chest pain. No abdominal pain. No nausea/vomiting/ diarrhea. No lateralizing signs/symptoms. CBC/BMP: 12/19/17 0610 12/19/17 0610 Significant Findings Laboratory Tests Test 12/17/17 16:40 12/18/17 17:42 12/18/17 22:30 12/19/17 06:10 Hematocrit 52.7 % (39.0-51.0) 54.6 % (39.0-51.0) Mean Corpuscular Hemoglobin Concent 31.7 % (32.0-36.0) Platelet Count 122 TH/MM3 (150-450) 137 TH/MM3 (150-450) 124 TH/MM3 (150-450) Neutrophils (%) (Auto) 84.8 % (16.0-70.0) 88.1 % (16.0-70.0) 87.0 % (16.0-70.0) Lymphocytes # (Auto) 0.7 TH/MM3 (1.0-4.8) 0.6 TH/MM3 (1.0-4.8) 0.9 TH/MM3 (1.0-4.8) Blood Urea Nitrogen 28 MG/DL (7-18) 24 MG/DL (7-18) 23 MG/DL (7-18) Random Glucose 174 MG/DL (74-106) 213 MG/DL (74-106) 141 MG/DL (74-106) Albumin 3.3 GM/DL (3.4-5.0) 3.0 GM/DL (3.4-5.0) Calcium Level 8.3 MG/DL (8.5-10.1) Aspartate Amino Transf (AST/SGOT) 48 U/L (15-37) Alanine Aminotransferase (ALT/SGPT) 81 U/L (12-78) Total Bilirubin 2.1 MG/DL (0.2-1.0) 1.8 MG/DL (0.2-1.0) Potassium Level 5.6 MEQ/L (3.5-5.1) Carbon Dioxide Level 37.6 MEQ/L (21.0-32.0) 37.1 MEQ/L (21.0-32.0) 32.8 MEQ/L (21.0-32.0) Anion Gap 3 MEQ/L (5-15) Estimat Glomerular Filtration Rate 65 ML/MIN (>89) 72 ML/MIN (>89) 77 ML/MIN (>89) Troponin I LESS THAN 0.02 NG/ML Hemoglobin 18.0 GM/DL (13.0-17.0) Lymphocytes (%) (Auto) 7.1 % (9.0-44.0) 8.1 % (9.0-44.0) Neutrophils # (Auto) 7.9 TH/MM3 (1.8-7.7) 9.2 TH/MM3 (1.8-7.7) Blood Gas HCO3 35 mmol/L (22-26) Blood Gas Base Excess 9.7 mmol/L (-2-2) Blood Gas Oxygen Saturation 77 % (90-100) Arterial Blood Partial Pressure CO2 56 mmHg (38-42) Arterial Blood Partial Pressure O2 44 mmHG (61-120) Blood Gas Hemoglobin 16.6 G/DL (12.0-16.0) Imaging Last Impressions CT Angiography 12/17/17 1819 Signed Impressions: Service Date/Time: Sunday, December 17, 2017 19:37 - CONCLUSION: 1. No evidence of pulmonary emboli. 2. Underlying emphysema. Johnny Meng MD Chest X-Ray 12/17/17 1515 Signed Impressions: Service Date/Time: Sunday, December 17, 2017 15:56 - CONCLUSION: 1. No acute cardiopulmonary abnormality is identified. 2. Background lung changes are suggestive of obstructive airways disease/emphysema. Matthias Peraza MD PE at Discharge AAOx3 nad Lungs with decreased BS BL S1s2 systolic murmur no edema in lower extremities no JVD Pt update on day of discharge Patient states respiration is at baseline. Denies cp. Afebrile. Hospital Course Patient did not seem to have any respiratory infection. Patient was treated with oral doxycycline, IV Solu-Medrol which dose was tapered as patient improved. Pulmonology was consulted. Patient also had his home medications for COPD resumed. Will discharge on oral prednisone taper. Other chronic conditions of hypertension, hyperlipidemia, cardiomyopathy and depression seemed to remain stable and all home medications were resumed while the patient was hospitalized. Patient also was noted to have elevated potassium 5.6 which resolved after IV fluid administration in the emergency department. BMP was monitored. Patient was placed on heart healthy diet and heparin subcu for DVT prophylaxis. Pt Condition on Discharge: Stable Discharge Disposition: Discharge Home Discharge Time: <= 30 minutes Discharge Instructions DIET: Follow Instructions for: As Tolerated, No Restrictions Activities you can perform: Regular-No Restrictions Activities to Avoid: Prolonged Standing, Strenuous Activity Follow up Referrals: Pulmonology - 2 Weeks with Terry Galarza MD New Medications: Oxygen (O2) (Oxygen (O2)) Device LITER PARKER.CANULA CONTINUOUS for Prevent Hypoxemia, #2.5 Oxygen Concentrator Portable Gaseous 2 L/min via Nasal Canula Continuous For 99 months Prednisone (48) 10 mg tab Dose Pack (Prednisone (48) 10 mg tab Dose Pack) 10 Mg Dspk 10 MG PO DIRECTED for Inflammation, #1 DSPK 0 Refills Take 40mg daily for 5 days, 30mg daily for 5 days, 20mg daily for 5 days, 10 mg daily for 5 days, then stop. Continued Medications: Aspirin (Aspirin) 81 Mg Chew 81 MG CHEW DAILY, TAB 0 Refills Atorvastatin (Atorvastatin) 40 Mg Tab 40 MG PO HS for Cholesterol Management, TAB 0 Refills Clonazepam (Clonazepam) 0.5 Mg Tab 0.5 MG PO BID, TAB 0 Refills Doxycycline Hyclate (Doxycycline Hyclate) 100 Mg Cap 100 MG PO DAILY for Infection, CAP 0 Refills Eplerenone (Eplerenone) 25 Mg Tab 25 MG PO DAILY, TAB 0 Refills Fluoxetine (Fluoxetine) 60 Mg Tab 60 MG PO DAILY, TAB 0 Refills Metoprolol Tartrate (Metoprolol Tartrate) 25 Mg Tab 25 MG PO BID, TAB 0 Refills Trazodone (Trazodone) 50 Mg Tab 150 MG PO HS for Control Depression, #30 TAB 0 Refills Umeclidinium-Vilanterol Inh (Anoro Ellipta Inh) 62.5-25 Mcg/Act Aero 1 PUFF INH DAILY for COPD, #1 INHALER 0 Refills Discontinued Medications: Prednisone (Prednisone) 10 Mg Tab 10 MG PO DIRECTED, TAB 0 Refills Vitamin E Acetate (Vitamin E) 400 Unit Capsule 1 TAB PO DAILY Ace Crowe MD Dec 20, 2017 14:06
== END 2017-12-20 17:28 | disposition home or self-care (01) ==
LOC: NEPE 14:55 → NEDA 20:47 → NEPHCDU 23:43
PROVIDERS: ADMIT Hospitalist; ATTEND Hospitalist
DX: J44.1 Chronic obstructive pulmonary disease with (acute) exacerbation (principal); J96.21 Acute and chronic respiratory failure with hypoxia; E87.2 Acidosis; I11.9 Hypertensive heart disease without heart failure; E78.00 Pure hypercholesterolemia, unspecified; E87.5 Hyperkalemia; I27.20 Pulmonary hypertension, unspecified; I34.1 Nonrheumatic mitral (valve) prolapse; F32.9 Major depressive disorder, single episode, unspecified; F41.9 Anxiety disorder, unspecified; M19.90 Unspecified osteoarthritis, unspecified site; Z95.810 Presence of automatic (implantable) cardiac defibrillator; Z87.891 Personal history of nicotine dependence; Z79.899 Other long term (current) drug therapy; Z79.82 Long term (current) use of aspirin; Z99.81 Dependence on supplemental oxygen
CPT/HCPCS: 36600; 71046; 71275; 80048; 80053; 82550; 82805; 82948; 83735; 83880; 84100; 84484; 85025; 85610; 85730; 94150; 94618; 94640; 94664; 96372; 96374; 96376; 99285; G0378; J1644; J2930; J7512; Q9967

== ENCOUNTER 2018-01-15 14:49 | Emergency (ER) | payer MEDICARE, OTHER ==
[~2018-01-15] VITALS: Ht 180.3 cm; Wt 73.8 kg
[~2018-01-15 14:49] MED LIST changes: -ALBU8I INH; +ASPI-516 CHEW; -ASPI81TA82 PO; -ATOR40TA PO; +ATOR40TA16 PO; +CLON0.5T PO; -CLON1TAB PO; -COQ150CA PO; +DOXY100C PO; +EPLE25TA PO; +FLUO60TA PO; -KLOR20TA3 PO; -METO25 PO; +METO25TA3 PO; +OXYGENDME NAS.CANULA; +PRED10PA2 PO; -PROZ20CA11 PO; -SAW160TA PO; -SLOWTAB PO; -TORS20TA PO; -VITA100017 PO; -VITA400C70 PO; -Z.0.OXYGENDME TC; -[UNRECOGNIZED DRUG - CODE] PO
[2018-01-15 15:11] VITALS: BP 123/56; PULSE 93; RESP 18; TEMP 97.8; O2SAT 91
[2018-01-15] MEDS ORDERED: KLOR20TA3 PO (15:34)
--- NOTE | 2018-01-15 16:47 | RADRPT ---
EXAM DATE/TIME: 01/15/2018 16:28 [place] COMPARISON: CT PULMONARY ANGIOGRAM, December 17, 2017, 19:37. INDICATIONS : Left sided rib pain post fall 1 month ago MEDICAL HISTORY : Chronic obstructive pulmonary disease. SURGICAL HISTORY : Pacemaker. ENCOUNTER: Initial ACUITY: 1 month PAIN SCORE: 6/10 LOCATION: Left axillary ribs FINDINGS: Pacer on the left. No pneumothorax. Osteopenia with fractures of the left ninth and 10th ribs. Mild compensated cardiomegaly. CONCLUSION: Left rib fractures as above. Sebastian Manjarrez MD FACR on January 15, 2018 at 16:43 Board Certified Radiologist. This report was verified electronically.
--- NOTE | 2018-01-15 17:28 | PD ---
HPI . Rib pain Chief Complaint: Musculoskeletal Complaint Time Seen by Provider: 16:20 Travel History International Travel<30 days: No Contact w/Intl Traveler<30days: No Traveled to known affect area: No History of Present Illness HPI Patient presents with chief complaint of left rib pain. Onset was a month ago. He states that he fell and struck his left rib cage on the corner of a brick step. He has had pain since that time. He states that there was nothing new or different today that made him come to the emergency department for evaluation. He states that he just presumed that it would be getting better by now. The patient goes on to say that he was evaluated at [facility] following the fall. He states that he had x-rays of his lungs but never had any x-rays of his ribs. He states that he would like to know if he has a broken rib. Pain is rated 9/ 10. The pain waxes and wanes. He reports very little pain at present but states that the pain was very severe earlier today. Pain is exacerbated by movement. He has chronic shortness of breath but states that the shortness of breath is no different today than usual. PFSH Past Medical History Hx Anticoagulant Therapy: Yes Arthritis: Yes Asthma: No Autoimmune Disease: No Blood Disorders: No Depression: Yes Heart Rhythm Problems: Yes Cancer: No Cardiovascular Problems: Yes High Cholesterol: Yes Chemotherapy: No Chest Pain: No Congestive Heart Failure: No COPD: Yes Diabetes: No Diminished Hearing: No Endocrine: No Gastrointestinal Disorders: No Glaucoma: No Genitourinary: No Hepatitis: No Hiatal Hernia: No Hypertension: Yes Immune Disorder: No Musculoskeletal: No Neurologic: No Psychiatric: No Reproductive: No Respiratory: Yes (copd on oxygen) Integumentary: No Myocardial Infarction: No Radiation Therapy: No Sickle Cell Disease: No Sleep Apnea: No Thyroid Disease: No Influenza Vaccination: Yes Past Surgical History Abdominal Surgery: No AICD: Yes Appendectomy: Yes Arteriovenous Shunt: No Body Medical Devices: ICD Cardiac Surgery: Yes ([employer] 2005 REPAIR 2206) Ear Surgery: No Endocrine Surgery: No Eye Surgery: No Genitourinary Surgery: No Gynecologic Surgery: No Insulin Pump: No Joint Replacement: No Oral Surgery: No Pacemaker: Yes Thoracic Surgery: Yes Other Surgery: Yes Social History Alcohol Use: Yes (1 BEER MONTHY ) Tobacco Use: No (quit 2003) Substance Use: No Allergies-Medications (Allergen,Severity, Reaction): Coded Allergies: No Known Allergies (Verified Allergy, Unknown, 01/15/18) Reported Meds & Prescriptions Reported Meds & Active Scripts Active Oxygen (O2) Device Liter PARKER.CANULA CONTINUOUS Oxygen Concentrator Portable Gaseous 2 L/min via Nasal Canula Continuous For 99 months Reported Klor-Con M20 (Potassium Chloride Microencaps) 20 Meq Tab 20 Meq PO DAILY Eplerenone 25 Mg Tab 25 Mg PO DAILY Metoprolol Tartrate 25 Mg Tab 25 Mg PO BID Aspirin 81 Mg Chew 81 Mg CHEW DAILY Atorvastatin (Atorvastatin Calcium) 40 Mg Tab 40 Mg PO HS Clonazepam 0.5 Mg Tab 1 Mg PO BID Fluoxetine (Fluoxetine HCl) 60 Mg Tab 60 Mg PO DAILY Anoro Ellipta Inh (Umeclidinium/Vilanterol) 62.5-25 Mcg/Act Aero 1 Puff INH DAILY Trazodone (Trazodone HCl) 50 Mg Tab 150 Mg PO HS Review of Systems Except as stated in HPI: all other systems reviewed are Neg Cardiovascular: Positive: Chest Pain or Discomfort Respiratory: Positive: Shortness of Breath Physical Exam Narrative GENERAL: Awake and alert and in no acute distress. SKIN: Warm and dry. HEAD: Normocephalic/atraumatic. EYES: Pupils are equal. Extraocular movements are intact. NECK: Normal range of motion. CARDIOVASCULAR: Regular rate and rhythm. RESPIRATORY: Nonlabored respirations. Left lateral lower rib tenderness. No crepitus. MUSCULOSKELETAL: Atraumatic. NEUROLOGICAL: Nonfocal. PSYCHIATRIC: Appropriate mood and affect. Data Data Last Documented VS Vital Signs Date Time Temp Pulse Resp B/P (MAP) Pulse Ox O2 Delivery O2 Flow Rate FiO2 01/15/18 15:11 97.8 93 18 123/56 (78) 91 Orders Orders Ribs, Uni (W/Exp Cxr-Min 3vw) (01/15/18 16:20) MDM Medical Decision Making Medical Screen Exam Complete: Yes Emergency Medical Condition: Yes Medical Record Reviewed: Yes (Patient was admitted to the hospital on 12/17/17. He had a chest x-ray that was compatible with COPD. He had a CT for PE which was negative. Both studies mention no skeletal abnormalities) Differential Diagnosis Differential diagnosis of chest trauma includes but is not limited to superficial abrasions/contusions, rib fracture, pneumothorax, hemothorax, pulmonary contusion, cardiac contusion, ruptured thoracic aorta Narrative Course This patient presents with left lower rib pain for a month following a blow to his rib cage. Last Impressions Ribs X-Ray 01/15/18 1620 Signed Impressions: Service Date/Time: Saturday, January 15, 2018 16:28 - CONCLUSION: Left rib fractures as above. Sebastian Manjarrez MD FACR The x-rays were independently reviewed by me. Diagnosis Primary Impression: Rib fractures Qualified Codes: S22.42XA - Multiple fractures of ribs, left side, initial encounter for closed fracture Patient Instructions: General Instructions, Rib Fracture (DC) Additional Instructions: Tylenol or ibuprofen as needed for pain. Ice packs are also good for acute pain. Disposition: 01 DISCHARGE HOME Condition: Stable Susan Sanchez MD January 15, 2018 17:28
== END 2018-01-15 17:54 | disposition home or self-care (01) ==
LOC: PHEFT 14:49
DX: S22.42XA Multiple fractures of ribs, left side, initial encounter for closed fracture (principal); J44.9 Chronic obstructive pulmonary disease, unspecified; M19.90 Unspecified osteoarthritis, unspecified site; F32.9 Major depressive disorder, single episode, unspecified; E78.00 Pure hypercholesterolemia, unspecified; I10 Essential (primary) hypertension; W18.00XA Striking against unspecified object with subsequent fall, initial encounter; Z87.891 Personal history of nicotine dependence; Z79.82 Long term (current) use of aspirin
CPT/HCPCS: 71101; 99283